=== PATIENT | female | born 1980 | race Caucasian/White ===

== ENCOUNTER 2016-11-13 14:26 | Emergency (ER) | payer MEDICAID ==
[~2016-11-13] VITALS: Ht 165.1 cm; Wt 64.0 kg
[~2016-11-13 14:26] MED LIST: HYDR-3240 PO; SULF1TAB24 PO
[2016-11-13 14:32] VITALS: BP 103/70
== END 2016-11-13 15:05 | disposition home or self-care (01) ==
LOC: ED 14:59
DX: T63.301A Toxic effect of unspecified spider venom, accidental (unintentional), initial encounter (principal); L03.90 Cellulitis, unspecified; Y93.89 Activity, other specified; Y99.8 Other external cause status; Y92.89 Other specified places as the place of occurrence of the external cause
CPT/HCPCS: 99283

== ENCOUNTER 2017-04-22 15:19 | Emergency (ER) | payer MEDICAID ==
[~2017-04-22] VITALS: Ht 165.1 cm; Wt 65.7 kg
[2017-04-22 15:20] VITALS: BP 127/85
[2017-04-22 15:51] LABS: PATH.CAST-FLAG NOT PRESENT; SPERM-FLAG NOT PRESENT; SRC-FLAG NOT PRESENT; XTAL-FLAG NOT PRESENT; YLC-FLAG NOT PRESENT
[2017-04-22 15:58] LABS: HEMATOCRIT 48.6 % (34.6-47.8); HEMOGLOBIN 16.1 g/dL (11.7-16.4); WHITE BLOOD COUNT 11.7 x10^3/uL (3.4-10)
[2017-04-22 16:09] LABS: ASPARTATE AMINO TRANSFERASE 17 U/L (15-37); BLOOD UREA NITROGEN 12 mg/dL (7-18)
== END 2017-04-22 17:45 | disposition home or self-care (01) ==
LOC: ED 15:37
DX: N39.0 Urinary tract infection, site not specified (principal); N30.00 Acute cystitis without hematuria
CPT/HCPCS: 36415; 80053; 81001; 83690; 84703; 85025; 87086; 87210; 87491; 87591; 87808; 99284

== ENCOUNTER 2017-10-11 21:58 | Emergency (ER) | payer MEDICAID ==
[~2017-10-11] VITALS: Ht 165.1 cm; Wt 65.3 kg
[2017-10-11 22:01] VITALS: BP 118/79
[2017-10-11 23:40] LABS: MICROSCOPIC INDICATED
[2017-10-11 23:50] LABS: CULTURE INDICATED? NO
== END 2017-10-11 23:56 | disposition home or self-care (01) ==
LOC: ED 23:20
DX: N93.9 Abnormal uterine and vaginal bleeding, unspecified (principal); R10.9 Unspecified abdominal pain; Z98.51 Tubal ligation status
CPT/HCPCS: 81001; 99283

== ENCOUNTER 2018-03-28 19:45 | Emergency (ER) | payer MEDICAID ==
[~2018-03-28] VITALS: Ht 165.1 cm; Wt 60.4 kg
[2018-03-28 20:21] LABS: BASOPHILS # (AUTO) 0.04 x10^3/uL (0-0.1); BASOPHILS % (AUTO) 0 % (0-1); EOSINOPHILS # (AUTO) 0.26 x10^3/uL (0-0.4); EOSINOPHILS % (AUTO) 2 % (1-7); LYMPHOCYTES # (AUTO) 2.24 x10^3/uL (1-3.4); LYMPHOCYTES % (AUTO) 14 % (22-44); MD NO; MEAN CORPUSCULAR HEMOGLOBIN 31.1 pg (27.0-34.8); MEAN CORPUSCULAR HGB CONC 33.7 g/dL (32.4-35.8); MEAN CORPUSCULAR VOLUME 92.4 fL (80-100); MEAN PLATELET VOLUME 8.3 fL (7.4-10.4); MONOCYTES # (AUTO) 0.59 x10^3/uL (0.2-0.8); MONOCYTES % (AUTO) 4 % (2-9); NEUTROPHILS # (AUTO) 12.49 x10^3/uL (1.8-6.8); NEUTROPHILS % (AUTO) 80 % (42-75); PLATELET COUNT 371 x10^3/uL (130-400)
[2018-03-28 20:30] LABS: ALBUMIN 3.9 g/dL (3.4-5.0); ANION GAP 6 mmol/L (5-15); CALCIUM 8.7 mg/dL (8.5-10.1); CHLORIDE 110 mmol/L (98-107); CREATININE 0.82 mg/dL (0.55-1.02)
[2018-03-28] MEDS ORDERED: PHENAZOPYRIDINE 200 MG TABLET PO ONE (20:30)
[2018-03-28 20:33] LABS: CULTURE INDICATED? YES; MICROSCOPIC INDICATED
[2018-03-28 21:28] VITALS: BP 118/70
[2018-03-28] MEDS ORDERED: PHENAZOPYRIDINE 200 MG TABLET ONE (21:38)
== END 2018-03-28 21:43 | disposition home or self-care (01) ==
LOC: ED 21:05
DX: N10 Acute pyelonephritis (principal); F17.210 Nicotine dependence, cigarettes, uncomplicated
CPT/HCPCS: 36415; 80048; 81001; 82040; 84703; 85025; 87077; 87086; 87186; 93005; 99285

== ENCOUNTER 2018-04-03 07:35 | Emergency (ER) | payer MEDICAID ==
[~2018-04-03] VITALS: Ht 165.1 cm; Wt 57.9 kg
[2018-04-03] MEDS ORDERED: SODIUM CHLORIDE FLUSH 10ML SYR IVF ONE (08:00)
[2018-04-03] MEDS ORDERED: SODIUM CHLORIDE 0.9% 1,000ML IVBOLUS ONE (08:00)
[2018-04-03] MEDS ORDERED: ONDANSETRON ODT 4 MG ONE (08:28)
[2018-04-03] MEDS: ONDANSETRON ODT 4 MG PO ONE ×2 (08:39→08:40)
[2018-04-03 09:14] LABS: BASOPHILS # (AUTO) 0.02 x10^3/uL (0-0.1); BASOPHILS % (AUTO) 0 % (0-1); EOSINOPHILS # (AUTO) 0.07 x10^3/uL (0-0.4); EOSINOPHILS % (AUTO) 1 % (1-7); LYMPHOCYTES # (AUTO) 0.79 x10^3/uL (1-3.4); LYMPHOCYTES % (AUTO) 13 % (22-44); MD NO; MEAN CORPUSCULAR HEMOGLOBIN 30.6 pg (27.0-34.8); MEAN CORPUSCULAR HGB CONC 33.7 g/dL (32.4-35.8); MEAN CORPUSCULAR VOLUME 90.7 fL (80-100); MEAN PLATELET VOLUME 8.3 fL (7.4-10.4); MONOCYTES # (AUTO) 0.31 x10^3/uL (0.2-0.8); MONOCYTES % (AUTO) 5 % (2-9); NEUTROPHILS # (AUTO) 4.78 x10^3/uL (1.8-6.8); NEUTROPHILS % (AUTO) 80 % (42-75); PLATELET COUNT 265 x10^3/uL (130-400); RED BLOOD COUNT 5.21 x10^6/uL (3.82-5.3); RED CELL DISTRIBUTION WIDTH 12.4 % (9.6-15.2)
[2018-04-03 09:18] LABS: CULTURE INDICATED? YES; MICROSCOPIC INDICATED
[2018-04-03 09:25] LABS: ALANINE AMINOTRANSFERASE 21 U/L (12-78); ALBUMIN 3.4 g/dL (3.4-5.0); ANION GAP 9 mmol/L (5-15); CALCIUM 8.7 mg/dL (8.5-10.1); CHLORIDE 102 mmol/L (98-107); CREATININE 0.74 mg/dL (0.55-1.02)
[2018-04-03 09:29] LABS: ALKALINE PHOSPHATASE 70 U/L (45-117); BILIRUBIN,TOTAL 0.3 mg/dL (0.2-1.0); TOTAL PROTEIN 7.5 g/dL (6.4-8.2)
[2018-04-03] MEDS ORDERED: CEFTRIAXONE PMX 1GM/50ML 50 ML ONE (09:59)
[2018-04-03] MEDS ORDERED: CEFTRIAXONE 1,000 MG in SODIUM CHLORIDE 0.9% 50 ML IV ONE (10:00)
[2018-04-03 11:31] LABS: CLOSTRIDIUM DIFFICILE ANTIGEN NEGATIVE; CLOSTRIDIUM DIFFICILE TOXIN NEGATIVE (Negative)
[2018-04-03 12:47] VITALS: BP 91/63
== END 2018-04-03 12:55 ==
LOC: ED 08:57
DX: R19.7 Diarrhea, unspecified (principal); N30.01 Acute cystitis with hematuria
CPT/HCPCS: 36415; 80053; 81001; 83690; 84703; 85025; 87077; 87086; 87324; 96361; 96365; 99284; J0696; J7030; 87186

== ENCOUNTER 2018-12-30 09:46 | Emergency (ER) | payer SELFPAY ==
[~2018-12-30] VITALS: Ht 165.1 cm; Wt 59.0 kg
[2018-12-30 10:01] VITALS: BP 106/68
--- NOTE | 2018-12-30 10:22 | NUR ---
pt presents to ed with right flank pain x 3 days. pt states she has had kidney pain x 1 year. Assessment completed. pt assisted to br and clean, catch urine obtained. pt then placed on bp and cont. pulse oximeter. call light in reach.
[2018-12-30 10:55] LABS: CULTURE INDICATED? YES; MICROSCOPIC INDICATED
--- NOTE | 2018-12-30 11:01 | NUR ---
report given to ranjit
--- NOTE | 2018-12-30 11:01 | NUR ---
bedside report from acosta rn, pt resting in [facility], call light within reach.
== END 2018-12-30 13:18 | disposition home or self-care (01) ==
LOC: ED 10:41
DX: N30.00 Acute cystitis without hematuria (principal); F17.210 Nicotine dependence, cigarettes, uncomplicated
CPT/HCPCS: 81001; 87086; 99283

== ENCOUNTER 2019-06-25 00:13 | Emergency (ER) | payer MEDICAID ==
[~2019-06-25] VITALS: Ht 165.1 cm; Wt 61.0 kg
--- NOTE | 2019-06-25 00:47 | NUR ---
pt up to rr with steady gait, provided pt with urine cup
--- NOTE | 2019-06-25 01:02 | NUR ---
BREAK RN: PT ABLE TO AMBULATE TO BATHROOM AND PROVIDE URINE SAMPLE. URINE SENT TO LAB. LAB HAS DRAWN BLOOD.
[2019-06-25 01:12] LABS: BASOPHILS % (AUTO) 1 % (0-1); EOSINOPHILS # (AUTO) 0.67 x10^3/uL (0-0.4); EOSINOPHILS % (AUTO) 5 % (1-7); LYMPHOCYTES # (AUTO) 1.86 x10^3/uL (1-3.4); LYMPHOCYTES % (AUTO) 14 % (22-44); MD NO; MEAN CORPUSCULAR HEMOGLOBIN 31.2 pg (27.0-34.8); MEAN CORPUSCULAR HGB CONC 32.7 g/dL (32.4-35.8); MEAN CORPUSCULAR VOLUME 95.3 fL (80-100); MEAN PLATELET VOLUME 8.4 fL (7.4-10.4); MONOCYTES # (AUTO) 0.72 x10^3/uL (0.2-0.8); MONOCYTES % (AUTO) 5 % (2-9); NEUTROPHILS # (AUTO) 10.36 x10^3/uL (1.8-6.8); NEUTROPHILS % (AUTO) 76 % (42-75); PLATELET COUNT 317 x10^3/uL (130-400); RED BLOOD COUNT 4.52 x10^6/uL (3.82-5.3)
[2019-06-25 01:21] LABS: AMPHETAMINE SCREEN, URINE Positive (Negative); BARBITURATE SCREEN, URINE Negative (Negative); BENZODIAZEPINE SCREEN, URINE Negative (Negative); CANNABINOID SCREEN, URINE Positive (Negative); COCAINE SCREEN, URINE Negative (Negative); METHADONE SCREEN, URINE Negative (Negative); OPIATE SCREEN, URINE Negative (Negative)
[2019-06-25 01:21] LABS: ALANINE AMINOTRANSFERASE 29 U/L (12-78); ALBUMIN 3.3 g/dL (3.4-5.0); ANION GAP 4 mmol/L (5-15); CALCIUM 8.7 mg/dL (8.5-10.1); CHLORIDE 107 mmol/L (98-107); CREATININE 0.76 mg/dL (0.55-1.02)
[2019-06-25 01:22] LABS: ALKALINE PHOSPHATASE 71 U/L (45-117); BILIRUBIN,TOTAL 0.2 mg/dL (0.2-1.0); TOTAL PROTEIN 6.9 g/dL (6.4-8.2)
[2019-06-25 01:29] LABS: HCG UR SG 1.022 (1.003-1.030)
[2019-06-25 01:31] LABS: CULTURE INDICATED? YES; MICROSCOPIC INDICATED
[2019-06-25 01:32] VITALS: BP 113/71
--- NOTE | 2019-06-25 01:33 | NUR ---
pt resting on gurney watching tv, c/o right lower back sharp pain, will update erp pt requesting pain medication
[2019-06-25] MEDS ORDERED: ACETAMINOPHEN 500 MG TABLET ONE (01:44)
[2019-06-25] MEDS ORDERED: NITROFURANTOIN (MACROBID) 100 MG CAPSULE ONE (01:44)
[2019-06-25] MEDS ORDERED: PHENAZOPYRIDINE 200 MG TABLET ONE (01:48)
--- NOTE | 2019-06-25 01:50 | NUR ---
PT MEDICATED PER MAR
[2019-06-25] MEDS ORDERED: ACETAMINOPHEN 500 MG TABLET PO ONE (02:00)
[2019-06-25] MEDS ORDERED: PHENAZOPYRIDINE 200 MG TABLET PO ONE (02:00)
[2019-06-25] MEDS ORDERED: NITROFURANTOIN (MACROBID) 100 MG CAPSULE PO ONE (02:00)
== END 2019-06-25 02:04 | disposition home or self-care (01) ==
LOC: ED 00:57
DX: R07.89 Other chest pain (principal); R19.7 Diarrhea, unspecified; R30.0 Dysuria; R11.0 Nausea; R35.0 Frequency of micturition
CPT/HCPCS: 36415; 71045; 80053; 80307; 81001; 81025; 83690; 85025; 85379; 87086; 93005; 99284